=== PATIENT | female | born 1940 | race Caucasian/White ===

== ENCOUNTER 2021-08-20 09:26 | Outpatient (CLI) | payer MEDICARE, SELFPAY ==
--- NOTE | 2021-08-20 09:55 | MM_ITS ---
WS: [id number] BILATERAL SCREENING DIGITAL MAMMOGRAM WITH CAD HISTORY: SCREENING COMPARISON: 11/26/2015, 07/24/2013 Bilateral CC and MLO views submitted. Computer aided detection analyzed. Breast composition: The breasts are heterogeneously dense, which may obscure small masses. No suspici ous masses, microcalcifications or architectural distortion. Numerous calcifications within each [address] There is a cluster of calcifications within the inferior posterior RIGHT breast which has been pr esent on prior examinations with no change. MM/[id number] IMPRESSION: BI-RADS: 2-Benign FOLLOW UP: 1 Year Follow-up
== END 2021-08-20 09:27 | disposition home or self-care (01) ==
PROVIDERS: Family Provider Family Medicine; Visit Provider Family Medicine
DX: Z12.31 Encounter for screening mammogram for malignant neoplasm of breast (principal)
CPT/HCPCS: 77067

== ENCOUNTER → 2022-01-13 09:10 | Outpatient (BNVA) | payer MEDICARE, SELFPAY | PROVIDERS: Family Provider Family Medicine; Visit Provider Family Medicine | DX: R60.9 Edema, unspecified (principal); N28.9 Disorder of kidney and ureter, unspecified; I50.9 Heart failure, unspecified | CPT/HCPCS: 80053; 84443; 85025 ==

== ENCOUNTER → 2022-06-11 08:23 | Outpatient (BNVA) | payer MEDICARE, SELFPAY | PROVIDERS: Family Provider Family Medicine; PCP Family Medicine; Visit Provider Family Medicine | DX: I48.91 Unspecified atrial fibrillation (principal); I10 Essential (primary) hypertension | CPT/HCPCS: 80053; 80061; 85025 ==

== ENCOUNTER 2022-10-01 14:57 | Outpatient (CLI) | payer MEDICARE, SELFPAY ==
--- NOTE | 2022-10-01 15:15 | MM_ITS ---
WS: [id number] BILATERAL SCREENING DIGITAL TOMOSYNTHESIS MAMMOGRAM WITH CAD HISTORY: SCREEN COMPARISON: None available. Bilateral CC and MLO views with tomosynthesis and synthetic mammography submitted. Computer aided det ection analyzed. Breast composition: The breasts are heterogeneously dense, which may obscure small masses. No suspici ous masses, microcalcifications or architectural distortion. MM/[id number] IMPRESSION: BI-RADS: 1-Negative FOLLOW UP: 1 Year Follow-up
== END 2022-10-01 14:58 | disposition home or self-care (01) ==
LOC: RAD 15:01
PROVIDERS: PCP Family Medicine; Visit Provider Family Medicine
DX: Z12.31 Encounter for screening mammogram for malignant neoplasm of breast (principal)
CPT/HCPCS: 77063; 77067

== ENCOUNTER → 2022-12-10 11:04 | Outpatient (BNVA) | payer MEDICARE, SELFPAY | PROVIDERS: PCP Family Medicine; Visit Provider Family Medicine | DX: I48.91 Unspecified atrial fibrillation (principal); I10 Essential (primary) hypertension; E03.9 Hypothyroidism, unspecified; Z13.6 Encounter for screening for cardiovascular disorders | CPT/HCPCS: 80053; 80061; 84443; 85025 ==

== ENCOUNTER 2023-05-12 05:41 | Emergency (ER) | payer MEDICARE, SELFPAY ==
[2023-05-12 05:46] VITALS: BP 117/84; PULSE 92; RESP 15; O2SAT 100; BMI 22.8
[2023-05-12 05:53] VITALS: BP 117/84; PULSE 83; RESP 16; O2SAT 100
--- NOTE | 2023-05-12 05:56 | PC.NURSE ---
family at bedside
--- NOTE | 2023-05-12 06:09 | W.ED.SKABFB ---
HPI - Skin/Abscess/Foreign Bdy General: Chief complaint: Skin/Abscess/Foreign Body Stated complaint: staff infection in left side of face Time Seen by Provider: 05/12/23 06:03 Source: patient Mode of arrival: ambulatory Limitations: no limitations History of Present Illness: 82-year-old female states she has noticed some erythema to her left face cheek area yesterday. She is seen and placed on Augmentin for possible cellulitis states that the area is swollen slightly since then. She denies any pain over the site to me she had no fevers denies any vision changes. Associated symptoms: Deny chills, fever(s), nausea or vomiting Review of Systems Const: Denies: fever(s), chills, body aches or change in appetite Eyes: Denies: blurry vision or eye discomfort ENMT: Denies: throat pain or dental pain Card: Denies: chest pain Resp: Denies: dyspnea GI: Denies: abdominal pain, nausea, vomiting or diarrhea Musc: Denies: neck pain or back pain Skin/Breast: Reports: rash Neuro: Denies: headache(s) PFSH ED PFSH: Medical History Atrial fibrillation Hypertension Mild intermittent asthma Family History Other CAD (coronary artery disease) Cancer Social History Smoking and tobacco/nicotine status: never used tobacco/nicotine Alcohol intake: never Physical Exam Const: COMMON NORMALS: no acute distress and patient oriented x3 HENMT: COMMON NORMALS: normocephalic and atraumatic HEAD & SCALP: normocephalic and atraumatic OTHER: Erythema and rash noted to left face no tenderness to touch no signs of abscess no signs of shingles Eye: COMMON NORMALS: conjunctivae normal CONJUNCTIVA: Yes conjunctivae normal Neck/C-Spine: COMMON NORMALS: full ROM Chest: COMMONS NORMALS: normal inspection of the chest Resp: COMMON NORMALS: normal respiratory effort Extremity: COMMON NORMALS: normal to inspection Neuro: COMMON NORMALS: patient oriented x3 Psych: COMMON NORMALS: mental status grossly normal Course Vital Signs: Vital signs: Vital Signs Pulse Rate 83 05/12/23 05:53 Respiratory Rate 16 05/12/23 05:53 Blood Pressure 117/84 05/12/23 05:53 Pulse Oximetry 100 05/12/23 05:53 Oxygen Delivery Me thod Room Air 05/12/23 05:53 MDM - Skin/Abscess/Foreign Bdy Medicial Decision Making Patient presents here with erythema to left face could be a cellulitis versus a dermatitis she has no signs of shingles no signs of orbital cellulitis she is to continue the Augmentin she just started yesterday we will add prednisone she is to follow-up with PCP and return if worsening. Medical Records I reviewed the patient's medical records. No radiology studies performed this visit Discharge Plan Discharge Patient Disposition: Home Clinical Impression: Cellulitis Condition: Stable Prescriptions: New prednisone 50 mg tablet 50 mg PO DAILY Qty: 5 0RF No Action loratadine [Claritin] 10 mg tablet 10 mg PO DAILY benzonatate 100 mg capsule 100 mg PO TID PRN (Reason: cough) Qty: 45 0RF amoxicillin-pot clavulanate 875-125 mg tablet 1 tab PO BID Qty: 14 0RF montelukast 10 mg tablet See Rx Instructions .ROUTE .COMPLEX Qty: 90 3RF Dose Instruction: TAKE 1 TABLET BY MOUTH EVERY DAY Rx Instructions: TAKE 1 TABLET BY MOUTH EVERY DAY furosemide 20 mg tablet See Rx Instructions .ROUTE .COMPLEX Qty: 90 3RF Dose Instruction: TAKE 1 TABLET BY MOUTH EVERY MORNING Rx Instructions: TAKE 1 TABLET BY MOUTH EVERY MORNING clonidine HCl 0.1 mg tablet 0.1 mg PO BID Qty: 60 1RF amlodipine 10 mg tablet 10 mg PO DAILY Qty: 30 11RF Rx Instructions: for bp losartan 50 mg tablet 50 mg PO BID Qty: 60 11RF metoprolol tartrate 100 mg tablet See Rx Instructions .ROUTE .COMPLEX Qty: 120 11RF Dose Instruction: TAKE 2 TABLETS BY MOUTH TWICE DAILY FOR heart rate Rx Instructions: TAKE 2 TABLETS BY MOUTH TWICE DAILY FOR heart rate cyclobenzaprine 5 mg tablet 5 mg PO TID PRN (Reason: muscle spasm) Qty: 30 3RF Eliquis 2.5 mg tablet 2.5 mg PO BID Qty: 180 1RF lovastatin 40 mg tablet See Rx Instructions .ROUTE .COMPLEX Qty: 90 3RF Dose Instruction: TAKE 1 TABLET BY MOUTH EVERY EVENING Rx Instructions: TAKE 1 TABLET BY MOUTH EVERY EVENING Discharge Orders: Discharge ED (Routine); Ordered 05/12/23 Ordered By: Gurwinder Caraballo Referrals: Dennis Dan, [Primary Care Provider] - 1-3 days Discharge Diet: Advance as tolerated Discharge Activity: Resume usual activity Patient Instructions: Cellulitis (ED) Coding Level of Care Code ED [employer]ist for [facility]
[2023-05-12 06:11] VITALS: TEMP 36.6
[2023-05-12] MEDS: predniSONE 20 mg Tablet 60 MG PO (06:11)
[2023-05-12 06:17] VITALS: BP 117/82; RESP 15; TEMP 36.6; O2SAT 99
== END 2023-05-12 06:19 | disposition home or self-care (01) ==
PROVIDERS: Emergency Provider Emergency Medicine; PCP Family Medicine
DX: L03.211 Cellulitis of face (principal); Z79.01 Long term (current) use of anticoagulants; I10 Essential (primary) hypertension
CPT/HCPCS: 99283; J7512

== ENCOUNTER → 2023-05-14 11:34 | Outpatient (BNVA) | payer MEDICARE, SELFPAY | PROVIDERS: PCP Family Medicine; Visit Provider Nurse Practitioner Family | DX: J34.0 Abscess, furuncle and carbuncle of nose (principal) | CPT/HCPCS: 85025; 87070 ==

== ENCOUNTER → 2023-06-14 12:00 | Outpatient (BNVA) | payer MEDICARE, SELFPAY | PROVIDERS: PCP Family Medicine; Visit Provider Family Medicine | DX: I48.91 Unspecified atrial fibrillation (principal); I10 Essential (primary) hypertension; Z13.6 Encounter for screening for cardiovascular disorders | CPT/HCPCS: 80053; 80061 ==

== ENCOUNTER 2023-11-03 11:20 | Outpatient (CLI) | payer MEDICARE, SELFPAY ==
--- NOTE | 2023-11-03 11:35 | MM_ITS ---
WS: [id number] BILATERAL SCREENING DIGITAL TOMOSYNTHESIS MAMMOGRAM WITH CAD HISTORY: SCREENING COMPARISON: 10/01/2022, 08/20/2021 and 11/26/2015 Bilateral CC and MLO views with tomosynthesis and synthetic mammography submitted. Computer aided det ection analyzed. Breast composition: The breasts are heterogeneously dense, which may obscure small masses. No suspici ous masses, microcalcifications or architectural distortion. Numerous benign calcifications in each b reast. IMPRESSION: MM/[id number] BI-RADS: 2-Benign FOLLOW UP: 1 Year Follow-up
== END 2023-11-03 11:21 | disposition home or self-care (01) ==
LOC: RAD 11:21
PROVIDERS: PCP Family Medicine; Visit Provider Family Medicine
DX: Z12.31 Encounter for screening mammogram for malignant neoplasm of breast (principal)
CPT/HCPCS: 77063; 77067

== ENCOUNTER → 2023-12-23 10:47 | Outpatient (BNVA) | payer MEDICARE, SELFPAY | PROVIDERS: PCP Family Medicine; Visit Provider Family Medicine | DX: E03.9 Hypothyroidism, unspecified (principal); I10 Essential (primary) hypertension; I48.91 Unspecified atrial fibrillation | CPT/HCPCS: 80053; 80061; 84443 ==

== ENCOUNTER → 2024-01-06 13:56 | Outpatient (BNVA) | payer MEDICARE, SELFPAY | PROVIDERS: PCP Family Medicine; Visit Provider Nurse Practitioner Family | DX: L57.0 Actinic keratosis (principal); L82.1 Other seborrheic keratosis; D22.5 Melanocytic nevi of trunk; I78.8 Other diseases of capillaries; L57.8 Other skin changes due to chronic exposure to nonionizing radiation | CPT/HCPCS: 17000; 99203 ==

== ENCOUNTER → 2024-03-02 08:17 | Outpatient (BNVA) | payer MEDICARE, SELFPAY | PROVIDERS: PCP Family Medicine; Visit Provider Nurse Practitioner Family | DX: L57.0 Actinic keratosis (principal); L82.1 Other seborrheic keratosis; L57.8 Other skin changes due to chronic exposure to nonionizing radiation | CPT/HCPCS: 17000; 99213 ==

== ENCOUNTER → 2024-11-06 10:25 | Outpatient (BNVA) | payer MEDICARE, SELFPAY | PROVIDERS: PCP Family Medicine; Visit Provider Family Medicine | DX: I10 Essential (primary) hypertension (principal); I48.91 Unspecified atrial fibrillation; G47.00 Insomnia, unspecified | CPT/HCPCS: 80053; 80061; 82306; 85025 ==

== ENCOUNTER 2024-11-17 08:21 | Outpatient (CLI) | payer MEDICARE, SELFPAY ==
--- NOTE | 2024-11-17 08:24 | MM_ITS ---
WS: [id number] BILATERAL SCREENING DIGITAL TOMOSYNTHESIS MAMMOGRAM WITH CAD HISTORY: SCREENING COMPARISON: 11/03/2023, 10/01/2022, 08/20/2021 Bilateral CC and MLO views with tomosynthesis and synthetic mammography submitted. Computer aided detection analyzed. Breast composition: The breasts are heterogeneously dense, which may obscure small masses. No suspicious masses, microcalcifications or architectural distortion. Benign scattered calcifications in each breast. MM/MM scr tomosynthesis [id number] IMPRESSION: BI-RADS: 2 - Benign FOLLOW UP: 1 Year Follow-up
== END 2024-11-17 08:22 | disposition home or self-care (01) ==
PROVIDERS: PCP Family Medicine; Visit Provider Family Medicine
DX: Z12.31 Encounter for screening mammogram for malignant neoplasm of breast (principal); R92.333 Mammographic heterogeneous density, bilateral breasts; R92.1 Mammographic calcification found on diagnostic imaging of breast
CPT/HCPCS: 77063; 77067

== ENCOUNTER → 2025-04-30 11:23 | Outpatient (BNVA) | payer MEDICARE, SELFPAY | PROVIDERS: PCP Family Medicine; Visit Provider Family Medicine | DX: I10 Essential (primary) hypertension (principal); I48.91 Unspecified atrial fibrillation; G47.00 Insomnia, unspecified; R53.1 Weakness; E03.9 Hypothyroidism, unspecified | CPT/HCPCS: 80053; 80061; 82306; 82607; 84443; 85025 ==